=== PATIENT | female | born 1970 | race African-American/Black ===

== ENCOUNTER 2022-08-10 17:54 | Emergency (ER) | payer OTHER, SELFPAY ==
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
[2022-08-10 18:36] VITALS: BP 150/80; BP 185/97; PULSE 86; PULSE 95; RESP 18; TEMP 37; O2SAT 97; O2SAT 99; BMI 50.8
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
[2022-08-10] MEDS: Cyclobenzaprine HCl 5 MG TABLET PO (19:01)
[2022-08-10 20:54] VITALS: BP 193/106; PULSE 93; RESP 18; O2SAT 99
--- NOTE | 2022-08-10 20:56 | PC.NURSE ---
Theresa KAPADIA notified of elevated blood pressure 193/104.
[2022-08-10 20:59] VITALS: BP 164/102
== END 2022-08-10 21:19 | disposition home or self-care (01) ==
PROVIDERS: Emergency Provider Internal Medicine
DX: M54.50 Low back pain, unspecified (principal); M54.2 Cervicalgia
CPT/HCPCS: 72131; 99284